=== PATIENT | female | born 2000 | race Two or more races ===

== ENCOUNTER 2024-08-30 02:14 | Emergency (ER) | payer OTHER ==
[~2024-08-30] VITALS: Ht 152.4 cm; Wt 54.4 kg
[2024-08-30] MEDS ORDERED: METOCLOPRAMIDE HCL 5 MG/ML VIAL IM STA (02:55)
[2024-08-30] MEDS ORDERED: PROMETHAZINE HCL 25 MG/ML AMPUL IM STA (02:55)
[2024-08-30] MEDS ORDERED: 0.9 % SODIUM CHLORIDE 500 ML IV STA (02:56)
[2024-08-30] MEDS ORDERED: FAMOtidine 10 MG/ML (4ML VIAL) IV PUSH STA (02:57)
[2024-08-30] MEDS ORDERED: HYOSCYAMINE SULFATE 0.125 MG TAB.SUBL SL ONE (03:00)
[2024-08-30] MEDS ORDERED: PROMETHAZINE HCL 25 MG/ML AMPUL ONE (03:05)
[2024-08-30] MEDS ORDERED: METOCLOPRAMIDE HCL 5 MG/ML VIAL ONE (03:06)
[2024-08-30] MEDS ORDERED: FAMOTIDINE/PF 20 MG/2 ML VIAL ONE (03:06)
[2024-08-30] MEDS ORDERED: HYOSCYAMINE SULFATE 0.125 MG TAB.SUBL ONE (03:06)
== END 2024-08-30 05:23 | disposition home or self-care (01) ==
LOC: ER 02:16
DX: K52.9 Noninfective gastroenteritis and colitis, unspecified (principal)